=== PATIENT | female | born 1950 | race Hispanic/Latino ===

== ENCOUNTER 2017-10-17 12:19 | Inpatient (IN) | payer BC, MEDICARE, OTHER ==
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
--- NOTE | 2017-10-17 13:42 | CT ---
PROCEDURE: CT Cervical Spine without contrast HISTORY: Neck pain COMPARISON: None available. TECHNIQUE: Axial computed tomography images were obtained of the cervical spine without the use of intravenous contrast. Coronal and sagittal reformatted images were created and reviewed. Radiation dose: Total exam DLP = 163 mGy-cm. This CT exam was performed using one or more of the following dose reduction techniques: Automated exposure control, adjustment of the mA and/or kV according to patient size, and/or use of iterative reconstruction technique. FINDINGS: VERTEBRAE: No fracture. Normal alignment. No destructive bony lesion. DISCS/SPINAL CANAL/NEURAL FORAMINA: No significant central canal or neural foraminal stenosis. There is disc degeneration at C6-7. There is no stenosis PARASPINAL SOFT TISSUES: Unremarkable. OTHER FINDINGS: None. IMPRESSION: Disc degeneration at C6-7. No acute findings. No evidence of stenosis
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
--- NOTE | 2017-10-17 16:55 | RAD ---
PROCEDURE: Radiographs of the left tibia and fibula. HISTORY: leg pain COMPARISON: None available. TECHNIQUE: Frontal and lateral views obtained. FINDINGS: BONES: Nondisplaced proximal fibular fracture. The finding is marked on the study for review. JOINT SPACES: Unremarkable. OTHER FINDINGS: None. IMPRESSION: Atypical appearance of a proximal left fibular fracture.
[2017-10-17 17:12] LABS: BASO # 0.01 K/mm3 (0.0-2.0); BASO % 0.1 % (0.0-3.0); EOS % 0.1 % (1.5-5.0); GRAN # 12.26 (1.4-6.5); GRAN % 87.6 % (50.0-68.0); HEMOGLOBIN 12.8 g/dL (12.0-16.0); LYMPH % 7.3 % (22.0-35.0); MEAN CELL VOLUME 94.4 fl (80.0-105.0); MEAN CORPUSCULAR HEMOGLOBIN 31.1 pg (25.0-35.0); MEAN PLATELET VOLUME 13.3 fl (7.0-11.0); MONO # 0.7 (0.1-0.6); MONO % 4.9 % (1.0-6.0); RBC 4.11 10^6/uL (3.5-6.1); RED CELL DISTRIBUTION WIDTH 12.2 % (11.5-14.5)
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
[2017-10-17 17:20] LABS: ALB/GLOB RATIO 1.5 (1.1-1.8); ALBUMIN 3.9 g/dL (3.0-4.8); ALT/SGPT 36 U/L (7-56); AST/SGOT 31 U/L (14-36); BLOOD UREA NITROGEN 16 mg/dL (7-21); CALCIUM 9.4 mg/dL (8.4-10.5); GFR AFRICAN-AMERICAN > 60; GFR NON-AFRICAN AMERICAN > 60
[2017-10-17 17:21] LABS: INR 1.02 (0.93-1.08); PARTIAL THROMBOPLASTIN TIME 28.8 Seconds (25.1-36.5); PROTHROMBIN TIME 11.6 SECONDS (9.4-12.5)
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
[2017-10-18] MEDS: Oxycodone/Acetaminophen 5/325 mg Tab PO PRN ×2 (04:21→20:41)
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
[2017-10-18 08:39] LABS: HEMOGLOBIN 12.7 g/dL (12.0-16.0); MEAN CELL VOLUME 94.3 fl (80.0-105.0); MEAN CORPUSCULAR HEMOGLOBIN 31.6 pg (25.0-35.0); MEAN CORPUSCULAR HGB CONC 33.5 g/dl (31.0-37.0); MEAN PLATELET VOLUME 13.1 fl (7.0-11.0); RBC 4.02 10^6/uL (3.5-6.1); RED CELL DISTRIBUTION WIDTH 12.5 % (11.5-14.5); WHITE BLOOD COUNT 10.7 10^3/ul (4.5-11.0)
[2017-10-18 08:49] LABS: ALB/GLOB RATIO 1.5 (1.1-1.8); ALBUMIN 4.1 g/dL (3.0-4.8); ALT/SGPT 31 U/L (7-56); AST/SGOT 28 U/L (14-36); BLOOD UREA NITROGEN 14 mg/dL (7-21); CALCIUM 9.6 mg/dL (8.4-10.5); GFR AFRICAN-AMERICAN > 60; GFR NON-AFRICAN AMERICAN > 60
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
[2017-10-18] MEDS: Cholestyramine 4 gm/Pkt UD PO SCH (12:26)
--- NOTE | 2017-10-18 16:21 | MRI ---
PROCEDURE: MRI Left Knee HISTORY: Pain. COMPARISON: None available. TECHNIQUE: Multiecho multiplanar sequences were performed through the left knee. FINDINGS: ANTERIOR CRUCIATE LIGAMENT:: Intact. POSTERIOR CRUCIATE LIGAMENT:: Intact. MEDIAL MENISCUS:: Intact. LATERAL MENISCUS:: There is a horizontal tear extending through the entire lateral meniscus. This is best visualized on sagittal image 20. MEDIAL COLLATERAL LIGAMENT:: Intact. LATERAL COLLATERAL LIGAMENT COMPLEX:: Intact. QUADRICEPS TENDON:: Intact. PATELLAR TENDON:: Intact. CARTILAGE:: Intact. JOINT FLUID:: Moderate-sized OSSEOUS STRUCTURES:: There is a displaced fracture through the proximal fibula. There is a moderate amount of edema in the muscle groups adjacent to the fracture. OTHER FINDINGS: None IMPRESSION: Displaced fracture of the proximal fibula with surrounding muscular edema. Horizontal tear through the lateral meniscus. Moderate-sized joint effusion
--- NOTE | 2017-10-18 18:01 | CARD ---
APPROVED REPORT EKG Measurement Heart [id number] <Conclusion> Normal sinus rhythm Normal ECG
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
[2017-10-19] MEDS: Oxycodone/Acetaminophen 5/325 mg Tab PO PRN (02:39)
[2017-10-19] MEDS ORDERED: Pantoprazole 20 mg EC Tab PO SCH (06:00)
[2017-10-19 06:24] VITALS: O2SAT 97
[2017-10-19] MEDS ORDERED: Oxycodone/Acetaminophen 5/325 mg Tab PO PRN (09:07)
[2017-10-19] MEDS: Cholestyramine 4 gm/Pkt UD PO SCH (09:16)
[2017-10-19 11:46] VITALS: RESP 18
[2017-10-19 15:28] VITALS: BP 133/76; PULSE 97; TEMP 98.2
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
== END 2017-10-19 17:14 | DRG 563 ==
LOC: ED 12:19 → ERH 18:56 → 2A 10-18 00:31 → OBSVTOIN 10-18 16:26
PROVIDERS: ADMIT Family Medicine; ATTEND Family Medicine
DX: S82.832A Other fracture of upper and lower end of left fibula, initial encounter for closed fracture (principal); S06.0X0A Concussion without loss of consciousness, initial encounter; S00.11XA Contusion of right eyelid and periocular area, initial encounter; S80.02XA Contusion of left knee, initial encounter; S00.93XA Contusion of unspecified part of head, initial encounter; J44.9 Chronic obstructive pulmonary disease, unspecified; E78.5 Hyperlipidemia, unspecified; R26.89 Other abnormalities of gait and mobility; Y93.01 Activity, walking, marching and hiking; V03.10XA Pedestrian on foot injured in collision with car, pick-up truck or van in traffic accident, initial encounter; Y92.488 Other paved roadways as the place of occurrence of the external cause; Z87.891 Personal history of nicotine dependence; Z88.0 Allergy status to penicillin

== ENCOUNTER 2017-10-19 16:35 | Inpatient (IN) | payer OTHER ==
[2017-10-19 17:59] VITALS: BMI 20.8
[2017-10-19] MEDS ORDERED: Influenza Vaccine 60 mcg/0.5 mL SYR (4YR UP) IM ONE (20:41)
[2017-10-19] MEDS ORDERED: Pneumococcal 23-Valent Vaccine IM ONE (20:41)
[2017-10-20] MEDS: Pantoprazole 20 mg EC Tab PO SCH (05:48)
[2017-10-20] MEDS: Oxycodone/Acetaminophen 5/325 mg Tab PO PRN ×2 (06:20→11:38)
[2017-10-20] MEDS: Cholestyramine 4 gm/Pkt UD PO SCH (10:47)
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
[2017-10-21] MEDS: Pantoprazole 20 mg EC Tab PO SCH (05:35)
[2017-10-21] MEDS: Oxycodone/Acetaminophen 5/325 mg Tab PO PRN (10:48)
[2017-10-21] MEDS: Cholestyramine 4 gm/Pkt UD PO SCH (10:49)
[2017-10-21] MEDS: Tiotropium 18 mcg Cap For Inhalation IH SCH (13:00)
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
--- NOTE | 2017-10-21 14:42 | RAD ---
PROCEDURE: Radiographs of the Sacrum and Coccyx HISTORY: sacral/coccyx pain after fall COMPARISON: None available. TECHNIQUE: Frontal and lateral views of the sacrum and coccyx FINDINGS: BONES: Sacrum and coccyx unremarkable. No fracture or focal lesion. SACROILIAC JOINTS: Unremarkable. OTHER FINDINGS: None. IMPRESSION: Unremarkable radiographs of the sacrum and coccyx.
[2017-10-22] MEDS: Pantoprazole 20 mg EC Tab PO SCH (05:51)
[2017-10-22] MEDS: Oxycodone/Acetaminophen 5/325 mg Tab PO PRN (09:25)
[2017-10-22] MEDS: Cholestyramine 4 gm/Pkt UD PO SCH (09:26)
[2017-10-22] MEDS: Tiotropium 18 mcg Cap For Inhalation IH SCH (09:27)
[2017-10-22] MEDS: SYMBICORT IH SCH (09:28)
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
[2017-10-23] MEDS: Pantoprazole 20 mg EC Tab PO SCH (05:39)
[2017-10-23 07:31] LABS: HEMOGLOBIN 12.2 g/dL (12.0-16.0); MEAN CELL VOLUME 95.2 fl (80.0-105.0); MEAN CORPUSCULAR HEMOGLOBIN 30.9 pg (25.0-35.0); MEAN CORPUSCULAR HGB CONC 32.4 g/dl (31.0-37.0); MEAN PLATELET VOLUME 12.7 fl (7.0-11.0); RBC 3.95 10^6/uL (3.5-6.1); RED CELL DISTRIBUTION WIDTH 12.4 % (11.5-14.5); WHITE BLOOD COUNT 7.1 10^3/ul (4.5-11.0)
[2017-10-23 08:45] LABS: ALB/GLOB RATIO 1.2 (1.1-1.8); ALBUMIN 3.6 g/dL (3.0-4.8); ALT/SGPT 86 U/L (7-56); AST/SGOT 68 U/L (14-36); BLOOD UREA NITROGEN 19 mg/dL (7-21); CALCIUM 9.6 mg/dL (8.4-10.5); GFR AFRICAN-AMERICAN > 60; GFR NON-AFRICAN AMERICAN > 60
[2017-10-23] MEDS ORDERED: Magnesium Hydroxide Susp 30 ml UD PO ONE (09:47)
[2017-10-23] MEDS: Cholestyramine 4 gm/Pkt UD PO SCH (10:28)
[2017-10-23] MEDS: SYMBICORT IH SCH (10:28)
[2017-10-23] MEDS: Tiotropium 18 mcg Cap For Inhalation IH SCH (10:28)
[2017-10-23] MEDS ORDERED: Oxycodone/Acetaminophen 5/325 mg Tab PO PRN (14:09)
[2017-10-23] MEDS: Oxycodone/Acetaminophen 5/325 mg Tab PO PRN (14:20)
--- NOTE | 2017-10-24 04:18 | PN ---
SUBJECTIVE: The patient remained seen in Transitional Care Unit. She is feeling better and continues with persistent headaches, but no blurry vision, complaining of a coccyx pain mostly when sitting in reclining chair and left lateral leg pain. The patient is undergoing physical therapy, very motivated, and doing very well. PHYSICAL EXAMINATION: VITAL SIGNS: Stable. Temperature of 97.5, pulse of 89, blood pressure 127/68, and respiratory rate of 18. GENERAL: She is comfortable in bed. Alert, awake, and oriented. HEENT: Head is normocephalic, persistent but improving ecchymosis of the right periorbital area. Conjunctivae clear. Oral mucosa is moist. NECK: Supple. LUNGS: Clear to auscultation. HEART: Regular rhythm and rate. ABDOMEN: Soft, nontender, and nondistended. EXTREMITIES: Tenderness of the left lateral knee and left lower extremity with some ecchymosis. The patient is able to flex and extend left extremity. LABORATORY DATA: Repeated test this morning, CBC is normal. Chemistry with normal electrolytes, slightly nonspecific elevation of liver enzymes. ASSESSMENT: 1. Left proximal fibula fracture. 2. Left lateral meniscal tear. 3. Right periorbital contusion. 4. History of head contusion with persistent headache. 5. Coccyx contusion with negative x-ray. PLAN OF TREATMENT: We will continue present therapy, analgesic as needed, and increase dose of Colace for constipation. Continue physical therapy as tolerated. Delia Mcconnell MD [facility]
[2017-10-24] MEDS: Pantoprazole 20 mg EC Tab PO SCH (05:40)
[2017-10-24] MEDS: SYMBICORT IH SCH (09:25)
[2017-10-24] MEDS: Oxycodone/Acetaminophen 5/325 mg Tab PO PRN (09:26)
[2017-10-24] MEDS: Tiotropium 18 mcg Cap For Inhalation IH SCH (09:26)
[2017-10-24] MEDS: Cholestyramine 4 gm/Pkt UD PO SCH ×2 (09:26→09:29)
[2017-10-25] MEDS: Pantoprazole 20 mg EC Tab PO SCH (05:52)
[2017-10-25] MEDS: Tiotropium 18 mcg Cap For Inhalation IH SCH (09:32)
[2017-10-25] MEDS: SYMBICORT IH SCH (09:50)
--- NOTE | 2017-10-25 10:29 | PN ---
DATE: 10/25/2017 SUBJECTIVE: The patient is getting better. She remains in TCU still with persistent coccyx pain, difficulty of sitting for a long time, also some pain at night and her lower extremity pain is much improved. Her appetite is good. PHYSICAL EXAMINATION: GENERAL: The patient is comfortable in bed, alert, awake, and oriented. VITAL SIGNS: Stable, temperature is 98.2, pulse is 85, and blood pressure is 124/74. HEENT: Head is normocephalic. Right periorbital ecchymosis is significantly improved. Oral mucosa moist. NECK: Supple. LUNGS: Clear to auscultation. HEART: Regular rhythm and rate. ABDOMEN: Soft and nontender and nondistended. Tenderness in the coccyx area mostly on the right side. EXTREMITIES: Left lower extremity with lateral ecchymosis in the lateral knee area . The patient is able to fully flex and extend her leg. There is tenderness of lower sacral and coccyx bone area. ASSESSMENT: 1. Left proximal fibular fracture, improved. 2. Coccyx contusion with persistent pain, possibly fracture. 3. Right periorbital contusion. 4. Left lateral meniscal tear. PLAN OF TREATMENT: We will order CT scan of coccyx and sacrum for evaluation of fracture. Continue pain medication Lidoderm patch to relieve her pain at night. Delia Mcconnell MD [facility]
[2017-10-25] MEDS: Lidocaine 5% Patch TD SCH (11:38)
[2017-10-25 17:46] VITALS: RESP 18; O2SAT 95
[2017-10-26] MEDS: Pantoprazole 20 mg EC Tab PO SCH (05:35)
[2017-10-26] MEDS: Tiotropium 18 mcg Cap For Inhalation IH SCH (11:00)
[2017-10-26] MEDS: SYMBICORT IH SCH (11:00)
[2017-10-26] MEDS: Lidocaine 5% Patch TD SCH (11:00)
[2017-10-26 16:14] VITALS: BP 133/73; PULSE 81; TEMP 98.1
--- NOTE | 2017-10-26 23:00 | PN ---
DATE: SUBJECTIVE: Patient continues with pain when sitting and walking mostly in the coccyx area. She is feeling better with her left lower extremity pain. She has good appetite. She is very motivated and participating with Physical Therapy fully. PHYSICAL EXAMINATION GENERAL: Patient is lying in bed, comfortable, alert, awake, oriented. VITAL SIGNS: Stable. Temperature is 98.1, pulse 81, blood pressure is 133/73, respiratory rate 18. HEENT: Head is normocephalic, atraumatic. Eyes with decreasing periorbital bruising. Oral mucosa is moist. NECK: Supple. HEART: With regular rhythm and rate. ABDOMEN: Soft, nontender, nondistended. EXTREMITIES: With some tenderness of left lateral knee area with full range of motion with good flexion and extension of the left lower extremity. There is tenderness of the coccyx area more so on the right side. CT scan of the lumbar spine done for evaluation of the coccyx area was not very helpful; however, it showed small disk bulge with some disk protrusion to the left side for which patient is asymptomatic. ASSESSMENT: 1. Left proximal fibular fracture, clinically improved with decrease of pain and improved range of motion. 2. Coccyx contusion, possible fracture with negative x-ray. 3. Right periorbital contusion, improved. 4. Left lateral meniscal tear. PLAN OF TREATMENT: Continue Physical Therapy, discussed multiple treatments to improve patient's coccyx pain including ice pack, Lidoderm patch, Tylenol and tramadol and if will go home, patient does not want to take Percocet. Delia Mcconnell MD [facility]
[2017-10-27] MEDS: Pantoprazole 20 mg EC Tab PO SCH (06:02)
[2017-10-27] MEDS: Cholestyramine 4 gm/Pkt UD PO SCH (10:16)
[2017-10-27] MEDS: SYMBICORT IH SCH (10:25)
[2017-10-27] MEDS: Tiotropium 18 mcg Cap For Inhalation IH SCH (10:25)
[2017-10-27] MEDS: Lidocaine 5% Patch TD SCH (10:25)
== END 2017-10-27 13:16 | disposition home or self-care (01) | DRG 605 ==
LOC: TRCU 16:35
PROVIDERS: ADMIT Family Medicine; ATTEND Family Medicine
PROC: F07Z9ZZ Gait Training/Functional Ambulation Treatment (ICD-10-PCS; principal; 2017-10-20)
PROC: F07M6ZZ Therapeutic Exercise Treatment of Musculoskeletal System - Whole Body (ICD-10-PCS; 2017-10-20)
DX: S00.93XA Contusion of unspecified part of head, initial encounter (principal); J44.9 Chronic obstructive pulmonary disease, unspecified; E78.5 Hyperlipidemia, unspecified; S82.832A Other fracture of upper and lower end of left fibula, initial encounter for closed fracture; M53.3 Sacrococcygeal disorders, not elsewhere classified; S00.11XA Contusion of right eyelid and periocular area, initial encounter; S30.0XXA Contusion of lower back and pelvis, initial encounter; S80.02XA Contusion of left knee, initial encounter; S83.282A Other tear of lateral meniscus, current injury, left knee, initial encounter; V03.10XA Pedestrian on foot injured in collision with car, pick-up truck or van in traffic accident, initial encounter; Y93.01 Activity, walking, marching and hiking; Y92.410 Unspecified street and highway as the place of occurrence of the external cause; Z88.0 Allergy status to penicillin; R26.9 Unspecified abnormalities of gait and mobility

== ENCOUNTER 2018-10-16 11:30 | Outpatient (CLI) | payer MEDICARE, BC | END 2018-10-16 11:31 | disposition home or self-care (01) | LOC: RAD 11:30 ==